=== PATIENT | female | born 1990 | race Two or more races ===

== ENCOUNTER 2017-07-06 12:45 | Emergency (ER) | payer SELFPAY ==
[~2017-07-06] VITALS: Ht 162.6 cm; Wt 62.6 kg
[2017-07-06 15:39] LABS: BLOOD UREA NITROGEN 19 mg/dL (7-18)
[2017-07-06 16:00] LABS: HEMATOCRIT 37.7 % (34.6-47.8); WHITE BLOOD COUNT 3.7 x10^3/uL (3.4-10)
[2017-07-06 16:49] LABS: HCG UR OBC PASS
== END 2017-07-06 17:46 | disposition home or self-care (01) ==
LOC: ED 15:18
DX: N30.00 Acute cystitis without hematuria (principal); F07.81 Postconcussional syndrome
CPT/HCPCS: 36415; 70450; 80048; 81001; 81025; 82040; 85025; 99285